=== PATIENT | female | born 1975 | race American Indian/Alaskan Native ===

== ENCOUNTER 2016-10-17 15:56 | Emergency (ER) | payer BC ==
[2016-10-17 16:11] VITALS: BP 139/94
--- NOTE | 2016-10-17 16:57 | Emergency Department Report ---
Chief Complaint: Vaginal Bleeding Stated Complaint: 8WKS /VAG BLEEDING Time Seen by Provider: 10/17/16 16:34 - HPI History of Present Illness: 41-year-old female, A2 L3, presents today with vaginal bleeding with clots since 1545 hrs. today. Patient is currently 8 weeks which has been confirmed. Denies urinary symptoms, chest pain, shortness of breath, abdominal pain. - ROS Review of Systems: Per HPI - Exam Vital Signs: Vital Signs 10/17/16 16:07 Temperature 98 F Pulse Rate 90 Respiratory 18 Rate Blood Pressure 139/94 O2 Sat by Pulse 100 Oximetry Physical Exam: General: 41-year-old female in no acute distress. Well-developed, well- nourished. CV: Regular rate and rhythm. Lungs: Clear to auscultation bilaterally. Abdomen: No tenderness to palpation. No guarding or rebound tenderness. MSE screening note: Focused history and physical exam performed. Due to findings the following was ordered: ED Disposition for MSE Condition: Stable
[2016-10-17 17:27] LABS: Basophils % (Auto) 0.3 % (0.0-1.8); Hematocrit 37.3 % (30.3-42.9); Hemoglobin 12.3 gm/dl (10.1-14.3); Mean Corpuscular HGB Conc 33 % (30-34); Mean Corpuscular Hemoglobin 28 pg (28-32); Mean Corpuscular Volume 86 fl (79-97); Platelet Count 270 K/mm3 (140-440); Red Blood Count 4.33 M/mm3 (3.65-5.03); Red Cell Distribution Width 15.9 % (13.2-15.2); White Blood Count 9.3 K/mm3 (4.5-11.0)
[2016-10-17 17:35] LABS: Bacteria,Urine 1+ /HPF (Negative); Bilirubin,Urine NEG (Negative); Blood,Urine LG (Negative); Ketones,Urine TR mg/dL (Negative); Leukocyte Esterase,Urine NEG (Negative); Mucus,Urine FEW /HPF; Nitrite,Urine NEG (Negative); Protein,Urine <15 mg/dL mg/dL (Negative); Urobilinogen,Urine < 2.0 mg/dL (<2.0)
[2016-10-17 17:36] LABS: INR 1.21 (0.87-1.13)
[2016-10-17 17:37] LABS: Partial Thromboplastin Time 26.9 Sec. (24.2-36.6)
[2016-10-17 17:44] LABS: Anion Gap 18 mmol/L; Blood Urea Nitrogen 7 mg/dL (7-17); Calcium 8.9 mg/dL (8.4-10.2); Carbon Dioxide 24 mmol/L (22-30); Chloride 93.7 mmol/L (98-107); Glucose 98 mg/dL (65-100); Potassium 4.1 mmol/L (3.6-5.0); Sodium 132 mmol/L (137-145)
--- NOTE | 2016-10-17 19:06 | Ultrasound Report ---
FINAL REPORT EXAM: US OB \T\lt; = 14 WEEKS FETUS HISTORY: Vaginal bleeding . positive test. LMP 08/20/2016 with estimated age 8 weeks 2 days and EDC 05/27/2017 TECHNIQUE: Ultrasound of the pelvis using transabdominal and transvaginal imaging PRIORS: None. FINDINGS: Uterus: Uterus is enlarged in size and normal and homogeneous in echogenicity without focal fibroid formation. The uterus measures 11.7 x 6.5 x 7.3 cm in size. There is a single early viable intrauterine gestation noted. Intrauterine gestation: There is a single intrauterine gestation identified with both a pole and yolk sac. heart rate is monitored at 166 BPM using M-mode doppler. [place]-rump length measurement of 18.8 cm corresponds to estimated age 8 weeks 3 days with estimated EDC 05/26/2017. Ovaries: Both ovaries appear normal in size and echogenicity with normal blood flow bilaterally. The right ovary measures 3.4 x 2.2 x 2.6 cm on the left ovary measures 3.6 x 2.2 x 2.3 cm in size. There is a hypoechoic avascular area in the left ovary measuring 1.8 x 1.5 x 1.7 cm, likely the corpus luteum. Other: There is no evidence for solid adnexal mass is seen. There is no free fluid in the cul-de-sac. IMPRESSION: Single intrauterine viable with an approximate age of 8 weeks 3 days.
--- NOTE | 2016-10-17 19:07 | Ultrasound Report ---
FINAL REPORT EXAM: US OB TRANSVAGINAL HISTORY: Vaginal bleeding . positive test. LMP 08/20/2016 with estimated age 8 weeks 2 days and EDC 05/27/2017 TECHNIQUE: Ultrasound of the pelvis using transabdominal and transvaginal imaging PRIORS: None. FINDINGS: Uterus: Uterus is enlarged in size and normal and homogeneous in echogenicity without focal fibroid formation. The uterus measures 11.7 x 6.5 x 7.3 cm in size. There is a single early viable intrauterine gestation noted. Intrauterine gestation: There is a single intrauterine gestation identified with both a pole and yolk sac. heart rate is monitored at 166 BPM using M-mode doppler. [place]-rump length measurement of 18.8 cm corresponds to estimated age 8 weeks 3 days with estimated EDC 05/26/2017. Ovaries: Both ovaries appear normal in size and echogenicity with normal blood flow bilaterally. The right ovary measures 3.4 x 2.2 x 2.6 cm on the left ovary measures 3.6 x 2.2 x 2.3 cm in size. There is a hypoechoic avascular area in the left ovary measuring 1.8 x 1.5 x 1.7 cm, likely the corpus luteum. Other: There is no evidence for solid adnexal mass is seen. There is no free fluid in the cul-de-sac. IMPRESSION: Single intrauterine viable with an approximate age of 8 weeks 3 days.
--- NOTE | 2016-10-19 15:11 | ED Elopement Review ---
ED Pt Elopement review - Results review Lab results: Laboratory Tests 10/17/16 10/17/16 10/17/16 17:00 17:00 17:04 WBC 9.3 RBC 4.33 Hgb 12.3 Hct 37.3 MCV 86 MCH 28 MCHC 33 RDW 15.9 H Plt Count 270 Lymph % (Auto) 30.9 Tripp % (Auto) 8.9 H Eos % (Auto) 2.0 Baso % (Auto) 0.3 Lymph # 2.9 Tripp # 0.8 Eos # 0.2 Baso # 0.0 Seg Neutrophils % 57.9 Seg Neutrophils # 5.4 PT INR APTT Sodium Potassium Chloride Carbon Dioxide Anion Gap BUN Creatinine Estimated GFR BUN/Creatinine Ratio Glucose Calcium HCG, Quant Urine Color Straw Urine Turbidity Clear Urine pH 7.0 Ur Specific Angela 1.011 Urine Protein <15 mg/dl Urine Glucose (UA) Neg Urine Ketones Tr Urine Blood Lg Urine Nitrite Neg Urine Bilirubin Neg Urine Urobilinogen < 2.0 Ur Leukocyte Esterase Neg Urine WBC (Auto) 1.0 Urine RBC (Auto) 1.0 U Epithel Cells (Auto) 2.0 Urine Bacteria (Auto) 1+ Urine Mucus Few Blood Type B POSITIVE Ord Rhogam Gestat Weeks Rh pos 10/17/16 10/17/16 10/17/16 17:04 17:04 17:04 WBC RBC Hgb Hct MCV MCH MCHC RDW Plt Count Lymph % (Auto) Tripp % (Auto) Eos % (Auto) Baso % (Auto) Lymph # Tripp # Eos # Baso # Seg Neutrophils % Seg Neutrophils # PT 15.2 H INR 1.21 H APTT 26.9 Sodium 132 L Potassium 4.1 Chloride 93.7 L Carbon Dioxide 24 Anion Gap 18 BUN 7 Creatinine 0.4 L Estimated GFR > 60 BUN/Creatinine Ratio 17.50 Glucose 98 Calcium 8.9 HCG, Quant 18769 H Urine Color Urine Turbidity Urine pH Ur Specific Angela Urine Protein Urine Glucose (UA) Urine Ketones Urine Blood Urine Nitrite Urine Bilirubin Urine Urobilinogen Ur Leukocyte Esterase Urine WBC (Auto) Urine RBC (Auto) U Epithel Cells (Auto) Urine Bacteria (Auto) Urine Mucus Blood Type Ord Rhogam Gestat Weeks - Call Back decision Pt Call Back Decision: No action required
== END 2016-10-17 22:08 | disposition left against medical advice (07) ==
LOC: ED 15:56
DX: N93.9 Abnormal uterine and vaginal bleeding, unspecified (principal); Z53.21 Procedure and treatment not carried out due to patient leaving prior to being seen by health care provider
CPT/HCPCS: 36415; 76801; 76817; 80048; 81001; 84702; 85025; 85610; 85730; 86900; 86901

== ENCOUNTER 2017-05-16 14:44 | Outpatient (CLI) | payer BC ==
[2017-05-16 15:08] VITALS: BP 119/65
--- NOTE | 2017-05-17 10:38 | Ultrasound Report ---
ULTRASOUND BIOPHYSICAL PROFILE: History: Decreased movement Technique: Transabdominal ultrasound with Doppler interrogation. 2 - breathing movements 2 - movements 2 - posture and tone 2 - Qualitative amniotic fluid volume 8 - TOTAL SCORE OF POSSIBLE 8 Heart Rate (bpm) 156
--- NOTE | 2017-05-17 10:39 | Ultrasound Report ---
ULTRASOUND OB LIMITED History: Decreased movement, well being Technique: Transabdominal ultrasound with Doppler interrogation. Gestation: Single Position: Cephalic Amniotic Fluid: Increased LY = 29.7 cm Heart Rate: 156 BPM IMPRESSION: Polyhydramnios.
== END 2017-05-16 17:15 | disposition home or self-care (01) ==
LOC: TRG 14:44
PROVIDERS: ATTEND Obstetrics & Gynecology
DX: O36.8130 Decreased fetal movements, third trimester, not applicable or unspecified (principal); O47.1 False labor at or after 37 completed weeks of gestation; Z3A.38 38 weeks gestation of pregnancy
CPT/HCPCS: 59025; 76815; 76819

== ENCOUNTER 2017-05-22 12:04 | Outpatient (CLI) | payer BC ==
[2017-05-22 12:32] VITALS: BP 137/76
[2017-05-22] MEDS ORDERED: LACTATED RINGERS 1,000 ML IV ONE (12:57)
[2017-05-22] MEDS ORDERED: LACTATED RINGERS 1,000 ML ONE (13:03)
[2017-05-22] MEDS ORDERED: VISTARIL PO ONE (14:00)
== END 2017-05-22 16:48 | disposition home or self-care (01) ==
LOC: TRG 12:04
PROVIDERS: ATTEND Obstetrics & Gynecology
DX: O09.523 Supervision of elderly multigravida, third trimester (principal); O47.1 False labor at or after 37 completed weeks of gestation; Z3A.39 39 weeks gestation of pregnancy
CPT/HCPCS: 59025; 96360; J7120; Q0177